=== PATIENT | female | born 1965 | race Caucasian/White ===

== ENCOUNTER 2021-07-22 15:32 | Emergency (ER) | payer OTHER, SELFPAY ==
[2021-07-22 15:35] VITALS: BP 183/90; PULSE 114; RESP 20; TEMP 36.1; O2SAT 98
[2021-07-22 19:29] LABS: Add Urine Microscopic? YES; Appearance Urine Cloudy (Clear); Bacteria Urine 4+ /hpf; Bilirubin Urine Negative (Negative); Blood Urine 2+ (Negative); Color Urine Amber (Yellow); Glucose Urine UA Negative (Negative); Ketones Urine Negative (Negative); Leukocyte Esterase Ur 1+ LEU/UL (Negative); Mucus Urine Rare /lpf; Nitrate Urine Positive (Negative); Protein Urine 2+ mg/dL (Negative); Specific Grav Ur 1.015 (1.001-1.035); Squamous Epithelial Cell Urine Rare /hpf (Few); WBC Urine >75 /hpf
--- NOTE | 2021-07-22 21:02 | ED.FEMALEGU ---
HPI - Female Genitourinary General Chief complaint: Urogenital-Female Stated complaint: UTI Time Seen by Provider: 07/22/21 17:45 History of Present Illness HPI Narrative: Patient is a 56-year-old female who presents ER with dysuria for the last 3 days. No fevers but does have chills. Has been taking Azo for discomfort. She has had urinary frequency and urgency. No lower abdominal pain. No nausea or vomiting. Recently recovered from COVID-19 illness. She was unvaccinated. Related Data Allergies Allergy/AdvReac Type Severity Reaction Status Date / Time No Known Allergies Allergy Mild Verified 07/22/21 20:28 Review of Systems Review of Systems: All systems reviewed & are unremarkable except as noted in HPI and below Constitutional: Constitutional: Reports chills ENT: Denies nasal congestion and Denies sore throat Comments: Endorses loss of taste and smell Respiratory: Respiratory: Denies cough, Denies dyspnea and Denies wheezing Gastrointestinal: Gastrointestinal: Denies abdominal pain, Denies nausea and Denies vomiting Genitourinary: Genitourinary: Reports nocturia, Reports dysuria, Denies flank pain and Denies urinary incontinence [facility] Past Medical History Medical History (Updated 07/22/21 @ 21:07 by Ric Lima MD) Kidney stones Surgical History Surgical History (Updated 07/22/21 @ 21:07 by Ric Lima MD) History of hysterectomy Exam Narrative: GENERAL: Well-appearing, well-nourished, and in no acute distress. HEAD: Normocephalic, atraumatic. CHEST: Clear to auscultation. No respiratory distress. HEART: Regular rate and rhythm. Normal peripheral pulses. ABDOMEN: Soft, nontender, nondistended EXTREMITIES: Normal range of motion. No edema. NEURO: Alert and oriented x3. PSYCH: Normal mood and affect. Course Course Emergency Course: Will start on antibiotics. Discharge home. Tachycardia improved on my exam. Vital Signs Vital signs: Vital Signs Temperature 97 F L 07/22/21 15:35 Pulse Rate 114 H 07/22/21 15:35 Respiratory Rate 20 07/22/21 15:35 Blood Pressure 183/90 H 07/22/21 15:35 Pulse Oximetry 98 07/22/21 15:35 Temperature 97 F L 07/22/21 15:35 Pulse Rate 114 H 07/22/21 15:35 Respiratory Rate 20 07/22/21 15:35 Blood Pressure 183/90 H 07/22/21 15:35 Pulse Oximetry 98 07/22/21 15:35 MDM - Female Genitourinary Lab Data Labs: Lab Results 07/22/21 Range/Units 19:08 Urine Color Elsie (Yellow) Urine Appearance Cloudy H (Clear) Urine pH 6.0 (5.0-9.0) Ur Specific [place] 1.015 (1.001-1.035) Urine Protein 2+ H (Negative) mg/dL Urine Glucose (UA) Negative (Negative) mg/dL Urine Ketones Negative (Negative) mg/dL Ur Blood (Man) 2+ H (Negative) Urine Nitrate Positive H (Negative) Urine Bilirubin Negative (Negative) Urine Urobilinogen 4.0 H (<2.0) mg/dL Leukocyte Esterase Rfl 1+ H (Negative) KOURTNEY/UL Urine RBC 11-20 H (0-2) /hpf Urine WBC >75 H /hpf Ur Squamous Epith Cells Rare (Few) /hpf Urine Bacteria 4+ H /hpf Hyaline Casts 5-9 H (None) /lpf Urine Mucus Rare /lpf Discharge Plan Discharge Clinical Impression: UTI (urinary tract infection) Patient Disposition: Home, Self-Care Condition: Stable Instructions: Antibiotic Form, Urinary Tract Infection in Women (ED) Additional Instructions: Return the ER if you have fever over 100.4 ?F, you cannot keep down food or water, you have chest pain or shortness of breath, you have additional concerns. Prescriptions: New cephalexin 500 mg capsule 500 mg PO Q8H Qty: 21 RF: 0 Follow-up/Referrals: PHYSICIAN,WIRE STRANDER [Primary Care Provider] - David Bui MD [Physician] - 1 Week
== END 2021-07-22 21:21 | disposition home or self-care (01) ==
PROVIDERS: Emergency Provider Emergency Medicine
DX: N39.0 Urinary tract infection, site not specified (principal); Z86.16 Personal history of COVID-19; Z87.442 Personal history of urinary calculi
CPT/HCPCS: 81001; 87077; 87086; 87186; 99283